=== PATIENT | female | born 1980 | race Caucasian/White ===

== ENCOUNTER → 2019-10-30 | Outpatient (CLI) | payer OTHER ==
[~2019-10-30] MED LIST: Amoxicillin875 MG; GUAIFENESIN-CODE5 ML PO; IBUP800 PO; OXYACE5T PO; Verotin-Gr Cap1 EACH
== END ==
LOC: LAB EV 09:07 → LAB SHORT 09:07
DX: J02.9 Acute pharyngitis, unspecified (principal)
CPT/HCPCS: 87081

== ENCOUNTER → 2020-03-04 | Outpatient (CLI) | payer OTHER ==
[2020-03-08 08:05] LABS: HPV 16 Negative (Negative); HPV 18 Negative (Negative); HPV OTHER HR TYPES Negative (Negative)
== END ==
LOC: LAB SHORT 12:33 → LAB 12:33
PROVIDERS: Registered Nurse Community Health
DX: Z12.4 Encounter for screening for malignant neoplasm of cervix (principal)
CPT/HCPCS: 87624; G0123

== ENCOUNTER → 2022-10-09 | Outpatient (CLI) | payer OTHER ==
[2022-10-12 15:10] LABS: HPV 16 Negative (Negative); HPV 18 Negative (Negative); HPV OTHER HR TYPES Negative (Negative)
== END ==
LOC: LAB SHORT 18:36 → LAB 18:36
PROVIDERS: Registered Nurse Community Health
DX: Z12.4 Encounter for screening for malignant neoplasm of cervix (principal)
CPT/HCPCS: 87624; G0145

== ENCOUNTER → 2024-05-13 | Outpatient (CLI) | payer OTHER ==
[~2024-05-13] MED LIST changes: +ALBU8HFA2 INH; +ESCI10 PO; +METPHE10 PO; +MULVITA PO; +PROG100 PO; +SUMA25 PO
== END ==
LOC: LAB 17:00 → LAB SHORT 17:00
DX: J02.9 Acute pharyngitis, unspecified (principal)
CPT/HCPCS: 87081